=== PATIENT | male | born 1990 | race Caucasian/White ===

== ENCOUNTER 2018-07-12 08:23 | Emergency (ER) | payer SELFPAY ==
[2018-07-12] MEDS ORDERED: Ketorolac 30 MG/ML SDV IVPUSH STA (08:46)
[2018-07-12] MEDS ORDERED: Ondansetron 4 MG/2 ML SDV IVPUSH ONE (08:46)
[2018-07-12] MEDS ORDERED: Tamsulosin 0.4 MG Cap.ER PO ONE (08:46)
[2018-07-12] MEDS ORDERED: HYDROmorphone 1 MG/ML Syringe IVPUSH ONE (08:46)
--- NOTE | 2018-07-12 08:49 | EDM.PDOC ---
ED HPI GENERAL MEDICAL PROBLEM - General Chief Complaint: Genitourinary Problem Stated Complaint: PAIN WHEN URINATING Time Seen by Provider: 07/12/18 08:34 Source of Information: Reports: Patient, RN Notes Reviewed History Limitations: Reports: No Limitations - History of Present Illness INITIAL COMMENTS - FREE TEXT/NARRATIVE: The patient states that he developed dysuria last night, and it was worse this morning. He reports both urinary frequency and urgency. He reports gross hematuria this morning. He states that he developed right lower flank pain this morning, which has progressively gotten worse. He rates it as an 8 out of 10 in severity, crampy in character. He has not identified any modifiers. No recent fever. He has had nausea related to his pain, but no emesis, constipation, or diarrhea. No prior similar symptoms. He has not taken any medication to treat his symptoms. The patient does not have a PCP. Bladder Pain Score (Numeric/FACES): 7 - Related Data Allergies Allergy/AdvReac Type Severity Reaction Status Date / Time No Known Allergies Allergy Verified 07/12/18 08:33 Home Meds: Home Meds . [No Known Home Meds] 07/12/18 [History] Past Medical History Musculoskeletal History: Reports: Fracture (left femur) - Past Surgical History Musculoskeletal Surgical History: Reports: Other (See Below) (Left femur rodding , with subsequent removal of hardware) Social & Family History - Tobacco Use Smoking Status *Q: Current Every Day Smoker Years of Tobacco use: 6 Packs/Tins Daily: 0.4 - Caffeine Use Caffeine Use: Reports: None - Alcohol Use Alcohol Use History: Yes Alcohol Use Frequency: Socially - Recreational Drug Use Recreational Drug Use: Yes Drug Use in Last 12 Months: Yes Recreational Drug Type: Reports: Marijuana/Hashish (smokes on occasion) - Living Situation & Occupation Living situation: Reports: Single, Alone Occupation: Employed ([employer]) ED ROS GENERAL - Review of Systems Review Of Systems: ROS reveals no pertinent complaints other than HPI. ED EXAM, RENAL/ - Physical Exam Exam: See Below Exam Limited By: No Limitations General Appearance: Alert, WD/WN, Mild Distress (Appears uncomfortable - pacing in exam room) Eye Exam: Bilateral Eye: EOMI, Normal Inspection Ears: Normal External Exam, Hearing Grossly Normal Nose: Normal Inspection Throat/Mouth: Normal Inspection, Normal Lips, Normal Voice, No Airway Compromise Head: Atraumatic, Normocephalic Neck: Normal Inspection, Full Range of Motion Respiratory/Chest: No Respiratory Distress, Lungs Clear, Normal Breath Sounds, No Accessory Muscle Use Cardiovascular: Normal Peripheral Pulses, Regular Rate, Rhythm, No Gallop, No JVD, No Murmur, No Rub GI/Abdominal: Normal Bowel Sounds, Soft, No Organomegaly, No Distention, No Abnormal Bruit, No Mass, Tender (Right side only. Nontender elsewhere.) (Male) Exam: Deferred Rectal (Males) Exam: Deferred Back Exam: Normal Inspection, Full Range of Motion, CVA Tenderness (R). No: CVA Tenderness (L) Extremities: Normal Inspection, Normal Range of Motion, No Pedal Edema, Normal Capillary Refill Neurological: Alert, Oriented, Normal Cognition, No Motor/Sensory Deficits Psychiatric: Normal Affect Skin Exam: Warm, Dry, Intact, Normal Color, No Rash Course - Vital Signs Last Recorded V/S: Last Vital Signs Temp 36.2 C 07/12/18 08:30 Pulse 56 L 07/12/18 08:30 Resp 16 07/12/18 08:30 BP 101/69 07/12/18 08:30 Pulse Ox 100 07/12/18 08:30 - Orders/Labs/Meds Orders: Active Orders 24 hr Category Date Time Status Strain Urine [RC] ASDIRECTED Care 07/12/18 08:47 Active Sodium Chloride 0.9% [Normal Saline] 1,000 ml Med 07/12/18 09:00 Active IV ASDIRECTED Medication Orders Sodium Chloride (Normal Saline) 1,000 mls @ 150 mls/hr IV ASDIRECTED MARISSA Last Admin: 07/12/18 09:09 Dose: 150 mls/hr Labs: Laboratory Tests 07/12/18 Range/Units 08:37 Urine Color Dark yellow (Yellow) Urine Appearance Cloudy H (Clear) Urine pH 6.0 (5.0-8.0) Ur Specific [place] > or = 1.030 (1.005-1.030) Urine Protein 2+ H (Negative) Urine Glucose (UA) Negative (Negative) Urine Ketones Negative (Negative) Urine Occult Blood 3+ H (Negative) Urine Nitrite Negative (Negative) Urine Bilirubin 1+ H (Negative) Urine Urobilinogen 1.0 (0.2-1.0) Ur Leukocyte Esterase Negative (Negative) Urine RBC 40-50 H (0-5) /hpf Urine WBC 0-5 (0-5) /hpf Ur Epithelial Cells 0-5 (0-5) /hpf Urine Bacteria Few (FEW) /hpf Hyaline Casts 0-5 (0-5) /lpf Urine Mucus Moderate H (FEW) /hpf Meds: Medications Generic Name Dose Route Start Last Admin Trade Name Freq PRN Reason Stop Dose Admin Sodium Chloride 1,000 mls @ 150 mls/hr 07/12/18 09:00 07/12/18 09:09 Normal Saline IV 150 mls/hr ASDIRECTED MARISSA Administration Discontinued Medications Generic Name Dose Route Start Last Admin Trade Name Freq PRN Reason Stop Dose Admin Hydromorphone HCl 1 mg 07/12/18 08:46 07/12/18 09:10 Dilaudid IVPUSH 07/12/18 08:47 1 mg ONETIME ONE Administration Ketorolac Tromethamine 30 mg 07/12/18 08:46 07/12/18 09:11 Toradol IVPUSH 07/12/18 08:47 30 mg ONETIME STA Administration Ondansetron HCl 4 mg 07/12/18 08:46 07/12/18 09:09 Zofran IVPUSH 07/12/18 08:47 4 mg ONETIME ONE Administration Tamsulosin HCl 0.4 mg 07/12/18 08:46 07/12/18 09:12 Flomax PO 07/12/18 08:47 0.4 mg ONETIME ONE Administration - Re-Assessments/Exams Free Text/Narrative Re-Assessment/Exam: 07/12/18 08:48 Clinically, the patient is suffering from a right-sided ureterolith. I have ordered Dilaudid, Flomax, IV fluid, Toradol, and Zofran. If his urinalysis demonstrates blood, as I expect it will, I will order a CT scan of his abdomen and pelvis without contrast. 07/12/18 09:26 The patient's urinalysis demonstrates 40-50 RBCs with 3+ occult blood, but is otherwise clean, without suggestion of a UTI. This is consistent with a ureterolith. I have ordered a CT of the abdomen and pelvis without contrast. 07/12/18 10:41 CT of the abdomen and pelvis no contrast is read by Dr. Retana as: 1. Slightly prominent size of the right ureter. No ureteral calculi are seen. 2.5 mm calcification is seen within the dependent bladder. This calcification most likely represents previous right ureteral stone which has passed. 2. Other normal findings as noted above. 07/12/18 10:49 Test results discussed with the patient. As above, it appears that the patient has already passed the stone. I will discharge him home with the recommendation that he strain all of his urine, and that if he recovers a stone, that he take it to a doctor for analysis. He may take [id number] ibuprofen as needed for discomfort today, and I will provide him a note for work today, to return tomorrow. Departure - Departure Time of Disposition: 10:51 Disposition: Home, Self-Care 01 Condition: Good Clinical Impression: Ureterolithiasis - Discharge Information *PRESCRIPTION DRUG MONITORING PROGRAM REVIEWED*: Not Applicable *COPY OF PRESCRIPTION DRUG MONITORING REPORT IN PATIENT CARLOS: Not Applicable Referrals: PCP,None [Primary Care Provider] - Forms: ED Department Discharge, ED Return to Work/School Form Additional Instructions: You were seen in the emergency room for painful urination and right lower flank pain. Workup in the ER included a urinalysis and a CT scan of your abdomen and pelvis without contrast. Your urinalysis showed blood, but no suggestion of a urinary tract infection. Your CT scan showed that you have already passed a 2.5 mm stone out of your ureter into your bladder. Stay adequately hydrated. At some point you will urinate the stone out. Strain all of your urine, as you will not likely be able to feel when that happens. If you capture the stone, take it to a doctor for analysis. Take [id number] ibuprofen as needed for discomfort. A note for work has been provided to you. You may return to work tomorrow. If any other problems, please do not hesitate to return to the ER. - My Orders Last 24 Hours: My Active Orders 07/12/18 08:47 Strain Urine [RC] ASDIRECTED 07/12/18 09:00 Sodium Chloride 0.9% [Normal Saline] 1,000 ml IV ASDIRECTED - Assessment/Plan Last 24 Hours: My Active Orders 07/12/18 08:47 Strain Urine [RC] ASDIRECTED 07/12/18 09:00 Sodium Chloride 0.9% [Normal Saline] 1,000 ml IV ASDIRECTED
[2018-07-12] MEDS ORDERED: Sodium Chloride 0.9% 1,000 ML IV SCH (09:00)
--- NOTE | 2018-07-12 10:37 | CT ---
CT abdomen and pelvis Technique: Multiple axial sections were obtained from above the dome of the diaphragm inferiorly through the pubic symphysis. Intravenous and oral contrast not utilized. Study has been performed as a ureteral stone protocol. Comparison: No prior abdominal imaging is available. Findings: Kidneys show no abnormal calcifications. Calcification is noted within the bladder. Right ureter is slightly prominent in size but no right ureteral calculi are seen. Calcification within the bladder measures approximately 2.5 mm. Visualized lung bases show nothing acute. Noncontrast appearance of the liver and spleen appears within normal limits. Gallbladder contains no calcified gallstones. Adrenal glands show no nodule. Pancreas is within normal limits. Aorta shows no aneurysm. No retroperitoneal adenopathy or mesenteric abnormalities are seen. Appendix is seen and is believed to be normal. No pelvic mass or adenopathy is seen. Bone window settings were reviewed which appear within normal limits for the patient's age. Impression: 1. Slightly prominent size of the right ureter. No ureteral calculi are seen. 2.5 mm calcification is seen within the dependent bladder. This calcification most likely represents previous right ureteral stone which has passed. 2. Other normal findings as noted above. Diagnostic code #3
== END 2018-07-12 11:16 | disposition home or self-care (01) ==
LOC: JD.ED 08:23
DX: N20.1 Calculus of ureter (principal); F17.210 Nicotine dependence, cigarettes, uncomplicated
CPT/HCPCS: 74176; 81001; 96361; 96374; 96375; 99284; A9270; J1170; J1885; J2405; J7040